=== PATIENT | female | born 1990 | race African-American/Black ===

== ENCOUNTER 2016-12-07 14:24 | Emergency (ER) ==
[2016-12-07 14:34] VITALS: BP 133/84; TEMP 97.9; BMI 25.0
--- NOTE | 2016-12-07 14:58 | ED.PDOC ---
General ED Provider: Dr. 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 breast pain admits discharge is intermittent and is unsure different from , is on injectable control Time Seen by Physician: 14:58 Mode of Arrival: Walk-In Information Source: Patient, Family Exam Limitations: No limitations Primary Care Provider: RAS BERNARDO Nursing and Triage Documentation Reviewed and Agree: No Review of Systems - Review Of Systems Constitutional: Reports: Malaise Eyes: Reports: No symptoms Ears, Nose, Mouth, Throat: Reports: No symptoms Respiratory: Reports: No symptoms Cardiac: Reports: No symptoms GI: Reports: No symptoms : Reports: No symptoms Musculoskeletal: Reports: No symptoms Skin: Reports: Other (breast pain and discharge intermittenly over months since stopped breast feeding) Neurological: Reports: No symptoms Endocrine: Reports: No symptoms Hematologic/Lymphatic: Reports: Other All Other Systems: Other Past Medical History - Past Medical History Previously Healthy: Yes Endocrine: Reports: None Cardiovascular: Reports: None Respiratory: Reports: None Hematological: Reports: None Gastrointestinal: Reports: None Genitourinary: Reports: None Neuro/Psych: Reports: None Musculoskeletal: Reports: None Cancer: Reports: None Last Menstrual Period: 11/03 - Surgical History General Surgical History: Reports: None - Family History Family History: Reports: Unknown - Social History Smoking Status: Never smoker Hx Substance Use: No Alcohol Screening: None - Immunizations Tetanus Shot up to Date: Yes Physical Exam - Physical Exam Appearance: Well-appearing, Thin Pain Distress: Mild Neck: Supple Respiratory: Airway patent, Breath sounds clear Cardiovascular: RRR Skin: Warm, Dry, Normal color (breasts not engorged left tender throughout more suplateral minimal clear fluid on expression right nontender exceptsuplateral) Critical Care Note - Critical Care Note Total Time (mins): 0 Course - Course Orders, Labs, Meds: Lab Review 12/07/16 16:05 Urine Test Negative Orders Category Date Time Status TEST URINE [URINE ] Stat LAB 12/07/16 16:05 Completed Vital Signs: Temp Pulse Resp BP Pulse Ox 12/07/16 14:26 97.9 F 88 20 133/84 98 Departure - Departure Time of Disposition: 16:29 Disposition: HOME SELF-CARE Discharge Problem: Mastitis of left breast unrelated to or Instructions: Mastitis (ED) Condition: Good Pt referred to PMD for follow-up: Yes Additional Instructions: follow up PMD discuss symptoms of breast pain consider prolactin HORMONE, LH HORMONE, obgyn consult as indicated Keflex antibiotic until gone Motrin for pain Prescriptions: Cephalexin [Keflex] 500 mg PO QID #40 capsule Ibuprofen [Motrin] 600 mg PO QID PRN #30 tablet PRN Reason: PAIN Home Medications: Ambulatory Orders Cephalexin [Keflex] 500 mg PO QID #40 capsule 12/07/16 Ibuprofen [Motrin] 600 mg PO QID PRN #30 tablet 12/07/16 Medroxyprogesterone Acetate [Depo-Provera] 150 mg IM 2-4XD 12/07/16
[2016-12-07 16:19] LABS: URINE PREGNANCY INTERNAL QC INTERNAL QC VALID
== END 2016-12-07 16:45 | disposition home or self-care (01) ==
LOC: ED 14:24
DX: N61.0 Mastitis without abscess (principal)
CPT/HCPCS: 36415; 81025; 99283

== ENCOUNTER 2017-04-06 09:47 | Emergency (ER) ==
[2017-04-06 09:54] VITALS: BP 164/96; TEMP 98.3; BMI 27.4
[2017-04-06] MEDS ORDERED: ZOFRAN 4 MG/2 ML IM STA (10:17)
[2017-04-06] MEDS ORDERED: MORPHINE 4 MG/ML SYRINGE IM STA (10:17)
[2017-04-06 10:44] LABS: BASOPHILS % (AUTO) 0.5 % (0.0-3.0); EOSINOPHILS % (AUTO) 0.3 % (0.0-7.0); HEMATOCRIT 37.3 % (37.0-47.0); HEMOGLOBIN 12.6 g/dl (12.0-16.0); IMMATURE GRANULOCYTE % (AUTO) 0.3 % (0.0-5.0); LYMPHOCYTES # (AUTO) 1.4 K/uL (0.60-3.4); MEAN CORPUSCULAR HGB CONC 33.8 (31.8-35.4); MEAN CORPUSCULAR VOLUME 85.7 fl (81.0-99.0); MONOCYTES # (AUTO) 0.1 K/uL (0.4-2.0); MONOCYTES % (AUTO) 1.8 (0-10); NEUTROPHILS # (AUTO) 4.9 K/ul (2.0-6.9); NEUTROPHILS % (AUTO) 75.1; PLATELET COUNT 315 10^3/uL (140-440); RED BLOOD COUNT 4.35 10^6/ul (4.20-5.40); WHITE BLOOD COUNT 6.55 K/ul (4.6-10.2)
[2017-04-06 10:50] LABS: BILIRUBIN,URINE Negative (NEGATIVE); KETONES,URINE Negative (NEGATIVE); LEUKOCYTE ESTERASE ,URINE Negative (NEGATIVE); NITRITE,URINE Positive (NEGATIVE); PH,URINE 7.5 (5-9); PROTEIN,URINE Negative (NEGATIVE); URINE, BLOOD Trace-intact (NEGATIVE)
[2017-04-06 10:52] LABS: ADD URINE MICROSCOPIC YES
[2017-04-06 10:53] LABS: BACTERIA,URINE 1+ (NOT PRESENT)
[2017-04-06 11:04] LABS: ALBUMIN 4.1 g/dL (3.4-5.0); ALBUMIN/GLOBULIN RATIO 1.11; ANION GAP 14.8; BILIRUBIN,TOTAL 0.46 mg/dL (0.00-1.20); BUN/CREATININE RATIO 12.19; CALCIUM 9.5 mg/dL (8.2-10.2); CREATININE 0.82 mg/dL (0.60-1.30); POTASSIUM 3.8 mmol/L (3.5-5.10); SERUM PREGNANCY INTERNAL QC INTERNAL QC VALID; TOTAL PROTEIN 7.8 g/dL (6.4-8.2)
--- NOTE | 2017-04-06 11:45 | CT ---
EXAM: CT of the abdomen pelvis without contrast History: Abdominal pain and vomiting, bilious vomiting. Comparison: CT abdomen pelvis 08/15/2016 Technique: Multiplanar CT images through the abdomen pelvis were obtained without the administratio n of IV contrast Findings: Motion artifact. The lack of contrast administration of limits evaluation. Lung bases ar e free of consolidation. No acute osseous abnormalities. No renal stones and no hydronephrosis. Gallbladder is not seen. No focal liver or splenic lesions. No frida peripancreatic inflammation. Adrenal glands are unremarkable. No dilated loops of bowel . Moderate bladder distension but no bladder wall thickening. No free air. Small amount of pelvic fluid. The appendix is not seen but there are no secondary signs of appendicitis. No bowel obstru ction. Impression: 1. No bowel obstruction. 2. Moderate bladder distension but no bladder wall thickening. 3. Small amount of pelvic fluid is probably physiologic.
--- NOTE | 2017-04-06 12:48 | US ---
EXAM: Ultrasound Transvaginal Non-obstetrical. HISTORY: Pelvic pain. Pelvic fluid on CT. COMPARISON: CT earlier the same day. TECHNIQUE: Fernandes scale and color doppler images with transvaginal probe. FINDINGS: The uterus measures 5.6 x 2.7 x 3.5 cm and appears normal. Endometrial stripe measures 0 .2 cm. No endometrial fluid collections are seen. Right ovary measures 4.2 x 2.3 x 2.3 cm. Left ovary measures 3.1 x 1.1 x 1.2 cm. Both ovaries appe ar unremarkable with vascular flow. Small amount of free pelvic fluid noted which is within physiol ogic range IMPRESSION: 1. Small amount of free pelvic fluid which is within physiologic range. 2. No sonographic abnormality of the uterus or ovaries.
--- NOTE | 2017-04-06 12:59 | ED.PDOC ---
General ED Provider: Dr. MYRIAM GOODWIN Chief Complaint: Nausea/Vomiting Stated Complaint: abdominal pain Time Seen by Physician: 10:00 (laceration l thumb) Mode of Arrival: Walk-In Information Source: Patient Exam Limitations: No limitations Primary Care Provider: RAS BERNARDO Nursing and Triage Documentation Reviewed and Agree: Yes GI Complaint Exam - Abdominal Pain Complaint/Exam Onset: Gradual Duration: 12 hrs Symptoms Are: Still present Timing: Constant Initial Severity: Moderate Current Severity: Mild Location of Pain: Diffuse Character: Reports: Aching, Cramping Aggravating: Reports: None Alleviating: Reports: None Associated Signs and Symptoms: Denies: Diaphoresis, Fever, Cough, Chest pain, Dizziness, Back pain, Constipation, Blood in stool, Dysuria, Urinary frequency, Decreased urine output, Decreased appetite, Vaginal bleeding, Vaginal discharge , Nausea, Vomiting, Diarrhea, Sore throat, Decreased activity AAA Risk Factors: Reports: None Cardiac Risk Factors: Reports: None Ectopic Risk Factors: Reports: None Ovarian Torsion Risk Factors: Reports: Reproductive age Surgical Obstruction Risk Factors: Reports: None Related Surgical History: Reports: None Patient Rh Status: Unknown Differential Diagnoses: Appendicitis, Bowel Obstruction, Constipation, Diverticulitis, Gastroenteritis Review of Systems - Review Of Systems Constitutional: Reports: No symptoms Eyes: Reports: No symptoms Ears, Nose, Mouth, Throat: Reports: No symptoms Respiratory: Reports: No symptoms Cardiac: Reports: No symptoms GI: Reports: Abdominal pain : Reports: No symptoms Musculoskeletal: Reports: No symptoms Skin: Reports: No symptoms Neurological: Reports: No symptoms Endocrine: Reports: No symptoms Hematologic/Lymphatic: Reports: No symptoms All Other Systems: Reviewed and Negative Past Medical History - Past Medical History Previously Healthy: Yes Endocrine: Reports: None Cardiovascular: Reports: None Respiratory: Reports: None Hematological: Reports: None Gastrointestinal: Reports: None Genitourinary: Reports: None Neuro/Psych: Reports: None Musculoskeletal: Reports: None Cancer: Reports: None Last Menstrual Period: TODAY - Surgical History General Surgical History: Reports: None - Family History Family History: Reports: Unknown - Social History Smoking Status: Never smoker Hx Substance Use: No Alcohol Screening: None - Immunizations Tetanus Shot up to Date: Yes Physical Exam - Physical Exam Appearance: Well-appearing, No pain distress, Well-nourished Eyes: RUBÉN, EOMI, Conjunctiva clear ENT: Ears normal, Nose normal, Oropharynx normal Respiratory: Airway patent, Breath sounds clear, Breath sounds equal, Respirations nonlabored Cardiovascular: RRR, Pulses normal, No rub, No murmur GI/: Soft, Nontender, No masses, Bowel sounds normal, No Organomegaly Musculoskeletal: Normal strength, ROM intact, No edema, No calf tenderness Skin: Warm, Dry, Normal color Neurological: Sensation intact, Motor intact, Reflexes intact, Cranial nerves intact, Alert, Oriented Psychiatric: Affect appropriate, Mood appropriate Interpretation - Radiology Interpretation Radiology Interpretation By: Radiologist Radiology Results: No acute changes Critical Care Note - Critical Care Note Total Time (mins): 0 Course - Course Hematology/Chemistry: 04/06/17 10:30 04/06/17 10:30 Orders, Labs, Meds: Lab Review 04/06/17 10:30 WBC 6.55 RBC 4.35 Hgb 12.6 Hct 37.3 MCV 85.7 MCH 29.0 MCHC 33.8 RDW Coeff of Rayshawn 14.4 Plt Count 315 Immature Gran % (Auto) 0.3 Neut % (Auto) 75.1 Lymph % (Auto) 22.0 [place] % (Auto) 1.8 Eos % (Auto) 0.3 Baso % (Auto) 0.5 Immature Gran # (Auto) 0.0 Neut # 4.9 Lymph # 1.4 [place] # 0.1 L Eos # 0.0 Baso # 0.0 Sodium 137 Potassium 3.8 Chloride 106 Carbon Dioxide 20 L Anion Gap 14.8 BUN 10 Creatinine 0.82 Estimated GFR (MDRD) 103.00 BUN/Creatinine Ratio 12.19 Glucose 112 H Lactic Acid 8.4 Calcium 9.5 Total Bilirubin 0.46 AST 15 ALT 10 L Alkaline Phosphatase 62 Total Protein 7.8 Albumin 4.1 Globulin 3.7 Albumin/Globulin Ratio 1.11 Amylase 81 Lipase 16 Serum , Qual Negative Urine Color Yellow Urine Clarity Slightly Urine pH 7.5 Ur Specific Ryan 1.020 Urine Protein Negative Urine Glucose (UA) Negative Urine Ketones Negative Urine Blood Trace-intact Urine Nitrite Positive Urine Bilirubin Negative Urine Urobilinogen 0.2 Ur Leukocyte Esterase Negative Urine Microscopic WBC 2-5 Ur Squamous Epith Cells 0-2 Amorphous Sediment 2+ Urine Bacteria 1+ Orders Category Date Time Status AMYLASE Stat LAB 04/06/17 10:30 Completed BLOOD CULTURE Stat LAB 04/06/17 10:30 Received CBC W/ AUTO DIFF Stat LAB 04/06/17 10:30 Completed COMPREHENSIVE METABOLIC PANEL Stat LAB 04/06/17 10:30 Completed LACTIC ACID Stat LAB 04/06/17 10:30 Completed LIPASE Stat LAB 04/06/17 10:30 Completed SERUM Stat LAB 04/06/17 10:30 Completed URINALYSIS C & S IF INDICATED Stat LAB 04/06/17 10:30 Completed URINE CULTURE Routine LAB 04/06/17 10:54 Received Morphine Sulfate [Morphine 4 mg/ml Syringe] MEDS 04/06/17 10:17 Discontinued 4 mg IM ONCE STA Ondansetron HCl/Pf [Zofran 4 mg/2 ml] MEDS 04/06/17 10:17 Discontinued 4 mg IM ONCE STA CT ABDOMEN/PELVIS WO CONTRAST Stat RADS 04/06/17 10:17 Completed ULTRASOUND PELVIS GAMBINO VAGINAL/NONOB [U/S PELVIS GAMBINO RADS 04/06/17 12:02 Completed VAGINAL/NON OB] Stat Medications Discontinued Medications Generic Name Dose Route Start Last Admin Trade Name Freq PRN Reason Stop Dose Admin Morphine Sulfate 4 mg 04/06/17 10:17 Morphine 4 Mg/Ml Syringe IM 04/06/17 10:18 ONCE STA Ondansetron HCl 4 mg 04/06/17 10:17 Zofran 4 Mg/2 Ml IM 04/06/17 10:18 ONCE STA Vital Signs: Temp Pulse Resp BP Pulse Ox 04/06/17 09:47 98.3 F 65 20 164/96 H 97 Departure - Departure Time of Disposition: 12:58 Disposition: HOME SELF-CARE Discharge Problem: Nausea, Vomiting Urinary tract infection Qualifiers: Urinary tract infection type: site unspecified Abdominal pain Qualifiers: Abdominal location: unspecified location Qualifier Code: (R10.9) Unspecified abdominal pain Instructions: Abdominal Pain (ED) Condition: Good Pt referred to PMD for follow-up: No Additional Instructions: Please call your Family Physician as soon as possible to schedule a follow-up appointment. Allergies/Adverse Reactions: Allergies No Known Allergies Allergy (Unverified 04/06/17 09:57) Home Medications: Ambulatory Orders Medroxyprogesterone Acetate [Depo-Provera] 150 mg IM 2-4XD 12/07/16 Sulfamethoxazole/Trimethoprim [Bactrim Ds Tablet] 1 each PO BID #10 tablet 04/06 Disposition Discussed With: Patient
== END 2017-04-06 13:17 | disposition home or self-care (01) ==
LOC: ED 09:47
DX: N39.0 Urinary tract infection, site not specified (principal); R11.2 Nausea with vomiting, unspecified; R10.9 Unspecified abdominal pain
CPT/HCPCS: 36415; 80053; 81001; 82150; 83605; 83690; 84703; 85025; 87040; 87086; 99283

== ENCOUNTER 2017-10-18 07:35 | Emergency (ER) ==
[2017-10-18 07:45] VITALS: BP 144/105; TEMP 98.4; BMI 28.5
[2017-10-18] MEDS ORDERED: SODIUM CHLORIDE 1,000 ML IV STA (07:58)
[2017-10-18] MEDS ORDERED: LOMOTIL PO STA (07:59)
[2017-10-18] MEDS ORDERED: ZOFRAN 4 MG/2 ML IVP STA (07:59)
[2017-10-18 08:13] LABS: BASOPHILS % (AUTO) 0.4 % (0.0-3.0); HEMATOCRIT 35.6 % (37.0-47.0); HEMOGLOBIN 12.2 g/dl (12.0-16.0); IMMATURE GRANULOCYTE % (AUTO) 0.4 % (0.0-5.0); LYMPHOCYTES % (AUTO) 13.4 (10.0-50.0); MEAN CORPUSCULAR HEMOGLOBIN 29.4 pg (27.0-31.0); MEAN CORPUSCULAR HGB CONC 34.3 (31.8-35.4); MEAN CORPUSCULAR VOLUME 85.8 fl (81.0-99.0); MONOCYTES # (AUTO) 0.1 K/uL (0.4-2.0); MONOCYTES % (AUTO) 1.3 (0-10); NEUTROPHILS # (AUTO) 6.1 K/ul (2.0-6.9); NEUTROPHILS % (AUTO) 84.5; PLATELET COUNT 309 10^3/uL (140-440); RED BLOOD COUNT 4.15 10^6/ul (4.20-5.40); WHITE BLOOD COUNT 7.19 K/ul (4.6-10.2)
[2017-10-18 08:34] LABS: ALBUMIN/GLOBULIN RATIO 0.93; ANION GAP 14.8; BILIRUBIN,TOTAL 0.3 mg/dL (0.00-1.20); BUN/CREATININE RATIO 12.04; CALCIUM 9.7 mg/dL (8.2-10.2); CREATININE 0.83 mg/dL (0.60-1.30); POTASSIUM 3.8 mmol/L (3.5-5.10); TOTAL PROTEIN 8.3 g/dL (6.4-8.2)
[2017-10-18 08:39] LABS: SERUM PREGNANCY INTERNAL QC INTERNAL QC VALID
[2017-10-18 08:46] LABS: FLU INTERNAL QC INTERNAL QC VALID; RAPID FLU A NEGATIVE (NEGATIVE); RAPID FLU B NEGATIVE (NEGATIVE)
--- NOTE | 2017-10-18 09:09 | DI ---
EXAM: PA and lateral views of the chest HISTORY: Cough. COMPARISON: Chest x-ray 04/28/2015 FINDINGS: The cardiomediastinal silhouette is normal. There is no pneumothorax or pleural effusion. There is no consolidation, nodule or mass. The osseous structures demonstrate degenerative disease of the spine. IMPRESSION: No acute cardiopulmonary process
--- NOTE | 2017-10-18 09:27 | CT ---
EXAM: CT Abdomen without contrast. CT Pelvis without contrast. HISTORY: Generalized mid abdominal pain, nausea and vomiting. COMPARISON: 04/06/2017. TECHNIQUE: Multiple axial images of the abdomen and pelvis were obtained without intravenous contras t. Images were reformatted in the coronal plane. FINDINGS: Please note that evaluation of the abdominal and pelvic structures is limited due to lack of intravenous contrast. Lung bases are clear. No acute osseous abnormality identified. Gallbladder not seen. The liver, pancreas, spleen, adrenal glands, and kidneys demonstrate normal co ntour. No calcified renal stones or hydronephrosis detected. The bowel is normal in course and caliber without evidence for obstruction or inflammatory process. The appendix is normal. Uterus demonstrates normal contour. Urinary bladder is unremarkable. No fr ee fluid or free air identified. IMPRESSION: No acute abnormality within the abdomen or pelvis.
[2017-10-18] MEDS ORDERED: SODIUM CHLORIDE 1,000 ML IV ONE (09:30)
--- NOTE | 2017-10-18 10:08 | ED.PDOC ---
General ED Provider: Dr. MYRIAM GOODWIN Chief Complaint: Nausea/Vomiting Stated Complaint: vomiting, diarrhea Time Seen by Physician: 08:00 Mode of Arrival: Walk-In Information Source: Patient Exam Limitations: No limitations Primary Care Provider: RAS BERNARDO Nursing and Triage Documentation Reviewed and Agree: Yes (seen with staff) GI Complaint Exam - Vomiting/Diarrhea Complaint/Exam Onset/Duration: 1 day Symptoms Are: Resolved Episodes of Vomiting over last 24 Hours: 5 Episodes of Diarrhea Over Last 24 Hours: 7 Initial Severity: Mild Current Severity: Mild Character of Vomiting: Reports: Non-bilious Character of Diarrhea: Reports: Watery. Denies: Bloody Aggravating: Reports: Food Alleviating: Reports: Clear liquids, NPO Associated Signs and Symptoms: Reports: Abdominal pain. Denies: Dizziness, Light-headedness, Melena, Hematemesis, Fever, Cramping Non-GI Risk Factors: Reports: None Surgical Obstruction Risk Factors: Reports: None Related Surgical History: Reports: None Abdominal Findings: Present: None Differential Diagnoses: Viral Gastroenteritis Review of Systems - Review Of Systems Constitutional: Reports: Chills, Malaise, Weakness, Loss of appetite Eyes: Reports: No symptoms Ears, Nose, Mouth, Throat: Reports: No symptoms Respiratory: Reports: No symptoms Cardiac: Reports: No symptoms GI: Reports: Abdominal pain, Diarrhea, Nausea : Reports: No symptoms Musculoskeletal: Reports: No symptoms Skin: Reports: No symptoms Neurological: Reports: No symptoms Endocrine: Reports: No symptoms Hematologic/Lymphatic: Reports: No symptoms All Other Systems: Reviewed and Negative Past Medical History - Past Medical History Previously Healthy: Yes Endocrine: Reports: None Cardiovascular: Reports: None Respiratory: Reports: None Hematological: Reports: None Gastrointestinal: Reports: None Genitourinary: Reports: None Neuro/Psych: Reports: None Musculoskeletal: Reports: None Cancer: Reports: None Last Menstrual Period: 10/15/17 - Surgical History General Surgical History: Reports: None - Family History Family History: Reports: Unknown - Social History Smoking Status: Never smoker Hx Substance Use: No Alcohol Screening: None Physical Exam - Physical Exam Appearance: Well-appearing, No pain distress, Well-nourished Eyes: RUBÉN, EOMI, Conjunctiva clear ENT: Ears normal, Nose normal, Oropharynx normal Respiratory: Airway patent, Breath sounds clear, Breath sounds equal, Respirations nonlabored Cardiovascular: RRR, Pulses normal, No rub, No murmur GI/: Soft, Nontender, No masses, Bowel sounds normal, No Organomegaly Musculoskeletal: Normal strength, ROM intact, No edema, No calf tenderness Skin: Warm, Dry, Normal color Neurological: Sensation intact, Motor intact, Reflexes intact, Cranial nerves intact, Alert, Oriented Psychiatric: Affect appropriate, Mood appropriate Interpretation - Radiology Interpretation Radiology Interpretation By: Radiologist Radiology Results: No acute changes Re-Evaluation - Re-Evaluation Time of Re-Evaluation: 09:00 Status: Improved Vital Signs Stable: Yes Pain Level: 0 Appearance: NAD Lungs: Clear Skin: Warm and Dry Neuro: Alert and Oriented X3 CV: RRR - Re-Evaluation Time of Re-Evaluation: 10:08 Status: Improved Vital Signs Stable: Yes Pain Level: 0 Appearance: NAD Skin: Warm and Dry Neuro: Alert and Oriented X3 CV: RRR Critical Care Note - Critical Care Note Total Time (mins): 0 Course - Course Hematology/Chemistry: 10/18/17 08:11 10/18/17 08:11 Orders, Labs, Meds: Lab Review 10/18/17 10/18/17 10/18/17 08:03 08:11 08:11 WBC 7.19 RBC 4.15 L Hgb 12.2 Hct 35.6 L MCV 85.8 MCH 29.4 MCHC 34.3 RDW Coeff of Rayshawn 14.4 Plt Count 309 Immature Gran % (Auto) 0.4 Neut % (Auto) 84.5 Lymph % (Auto) 13.4 [place] % (Auto) 1.3 Eos % (Auto) 0.0 Baso % (Auto) 0.4 Immature Gran # (Auto) 0.0 Neut # 6.1 Lymph # 1.0 [place] # 0.1 L Eos # 0.0 Baso # 0.0 Sodium 136 Potassium 3.8 Chloride 105 Carbon Dioxide 20 L Anion Gap 14.8 BUN 10 Creatinine 0.83 Estimated GFR (MDRD) 101.00 BUN/Creatinine Ratio 12.04 Glucose 120 H Calcium 9.7 Total Bilirubin 0.30 AST 15 ALT 15 Alkaline Phosphatase 76 Total Protein 8.3 H Albumin 4.0 Globulin 4.3 Albumin/Globulin Ratio 0.93 Serum , Qual Influenza A (Rapid) Negative Influenza B (Rapid) Negative 10/18/17 08:11 WBC RBC Hgb Hct MCV MCH MCHC RDW Coeff of Rayshawn Plt Count Immature Gran % (Auto) Neut % (Auto) Lymph % (Auto) [place] % (Auto) Eos % (Auto) Baso % (Auto) Immature Gran # (Auto) Neut # Lymph # [place] # Eos # Baso # Sodium Potassium Chloride Carbon Dioxide Anion Gap BUN Creatinine Estimated GFR (MDRD) BUN/Creatinine Ratio Glucose Calcium Total Bilirubin AST ALT Alkaline Phosphatase Total Protein Albumin Globulin Albumin/Globulin Ratio Serum , Qual Negative Influenza A (Rapid) Influenza B (Rapid) Orders Category Date Time Status ED IV/MEDIPORT/POWERPORT .ONCE EMERGENCY 10/18/17 07:58 Ordered CBC W/ AUTO DIFF Stat LAB 10/18/17 07:57 Ordered COMPREHENSIVE METABOLIC PANEL Stat LAB 10/18/17 07:57 Ordered MOLECULAR GROUP A STREP Stat LAB 10/18/17 08:03 Results RAPID FLU A/B Stat LAB 10/18/17 07:58 Uncollected SERUM Stat LAB 10/18/17 Ordered STREP SCREEN Stat LAB 10/18/17 07:58 Uncollected URINALYSIS C & S IF INDICATED Stat LAB 10/18/17 07:57 Uncollected 0.9 % Sodium Chloride [Saline Flush] MEDS 10/18/17 07:58 Ordered 1 syr IVF PRN PRN Diphenoxylate HCl/Atropine [Lomotil] MEDS 10/18/17 07:59 Stat 2 tab PO ONCE STA Ondansetron HCl/Pf [Zofran 4 mg/2 ml] MEDS 10/18/17 07:59 Stat 4 mg IVP ONCE STA SODIUM CHLORIDE 0.9% @ 1,000 MLS/HR(1,000ml) MEDS 10/18/17 07:58 Ordered Sodium Chloride 0.9% [Sodium Chloride] 1,000 ml IV BOLUS CHEST, 2 VIEWS PA & LAT Stat RADS 10/18/17 07:[address] ABDOMEN/PELVIS WO CONTRAST Stat RADS 10/18/17 08:17 Ordered Medications Generic Name Dose Route Start Last Admin Trade Name Freq PRN Reason Stop Dose Admin Sodium Chloride 1 syr 10/18/17 07:58 10/18/17 08:26 Saline Flush IVF 1 syr PRN PRN Administration To flush IV Discontinued Medications Generic Name Dose Route Start Last Admin Trade Name Freq PRN Reason Stop Dose Admin Diphenoxylate HCl/Atropine 2 tab 10/18/17 07:59 10/18/17 09:19 Lomotil PO 10/18/17 08:00 2 tab ONCE STA Administration Sodium Chloride 1,000 mls @ 1,000 mls/hr 10/18/17 07:58 10/18/17 08:20 Sodium Chloride IV 10/18/17 08:57 1,000 mls/hr BOLUS STA Administration Ondansetron HCl 4 mg 10/18/17 07:59 10/18/17 08:20 Zofran 4 Mg/2 Ml IVP 10/18/17 08:00 4 mg ONCE STA Administration Vital Signs: Temp Pulse Resp BP Pulse Ox 10/18/17 07:42 98.4 F 63 20 144/105 H 99 Departure - Departure Time of Disposition: 11:00 Disposition: HOME SELF-CARE Discharge Problem: Nausea, Vomiting, Viral syndrome Instructions: Viral Syndrome (ED) Condition: Good Pt referred to PMD for follow-up: Yes Additional Instructions: Please call your Family Physician as soon as possible to schedule a follow-up appointment. Allergies/Adverse Reactions: Allergies No Known Allergies Allergy (Verified 10/18/17 07:47)
== END 2017-10-18 11:02 | disposition home or self-care (01) ==
LOC: ED 07:35
DX: B34.9 Viral infection, unspecified (principal)
CPT/HCPCS: 36415; 80053; 84703; 85025; 87651; 87804; 87880; 96361; 96374; 99283

== ENCOUNTER 2018-03-21 14:56 | Emergency (ER) ==
[2018-03-21 15:03] VITALS: BP 124/79; TEMP 99.7; BMI 28.2
[2018-03-21] MEDS ORDERED: DECADRON 4 MG/ML SDV IV STA (15:19)
--- NOTE | 2018-03-21 16:13 | CT ---
EXAM: CT Abdomen without contrast. CT Pelvis without contrast. HISTORY: Mid abdominal pain. Nausea. COMPARISON: 10/18/2017. TECHNIQUE: Multiple axial images of the abdomen and pelvis were obtained without intravenous contras t. Images were reformatted in the sagittal and coronal plane. FINDINGS: Please note that evaluation of the abdominal and pelvic structures is limited due to lack of intravenous contrast. The lung bases are clear. No acute osseous abnormality is detected. Gallbladder not seen. The liver, pancreas, spleen, adrenal glands, and kidneys demonstrate normal co ntour. No calcified renal stones or hydronephrosis identified. No ureteral or bladder calculi are s een. There is diastasis of the rectus abdominus muscles above the level of the umbilicus with protrusion o f some bowel loops through this area. There is no evidence for bowel obstruction or acute inflammati on. The appendix is normal. Urinary bladder is distended but without localized abnormality. Uterus demonstrates normal contour. No free fluid or free air is seen. IMPRESSION: 1. No acute inflammatory process in the abdomen or pelvis. 2. Nonspecific urinary bladder distension. 3. Diastasis of the rectus abdominus muscles with herniation of bowel through this area. No associa jefferson inflammation.
--- NOTE | 2018-03-21 16:46 | ED.PDOC ---
General ED Provider: Dr. MYRIAM GOODWIN Chief Complaint: Abdominal Pain Stated Complaint: vomiting Time Seen by Physician: 15:00 Mode of Arrival: Walk-In Information Source: Patient Exam Limitations: No limitations Primary Care Provider: RAS BERNARDO Nursing and Triage Documentation Reviewed and Agree: Yes Reviewed sepsis parameters & appropriate labs ordered?: Yes System Inflammatory Response Syndrome: Not Applicable Sepsis Protocol: For patient's 13 years and over: Temp is 96.8 and below OR 101 and greater Pulse >90 BPM Resp >20/minute Acutely Altered Mental Status Are patient's symptoms suggestive of a new infection, such as: -Pneumonia -Skin, Soft Tissue -Endocarditis -UTI -Bone, Joint Infection -Implantable Device -Acute Abdominal Infection -Wound Infection -Meningitis -Blood Stream Catheter Infection -Unknown System Inflammatory Response Syndrome: Not Applicable (pt reported small amount of blood when she vomited this morning) GI Complaint Exam - Vomiting/Diarrhea Complaint/Exam Onset/Duration: this morning Symptoms Are: Resolved Episodes of Vomiting over last 24 Hours: 1 Initial Severity: Mild Current Severity: None Character of Vomiting: Reports: Bloody (small amount , less than 1 tea spoon no frida bleeing noted ) Aggravating: Reports: None Alleviating: Reports: None Associated Signs and Symptoms: Denies: Dizziness, Light-headedness, Melena, Hematemesis, Fever, Abdominal pain, Cramping Related History: Reports: Similar episode Review of Systems - Review Of Systems Constitutional: Reports: No symptoms Eyes: Reports: No symptoms Ears, Nose, Mouth, Throat: Reports: No symptoms Respiratory: Reports: No symptoms Cardiac: Reports: No symptoms GI: Reports: Vomiting : Reports: No symptoms Musculoskeletal: Reports: No symptoms Skin: Reports: No symptoms Neurological: Reports: No symptoms Endocrine: Reports: No symptoms Hematologic/Lymphatic: Reports: No symptoms All Other Systems: Reviewed and Negative Past Medical History - Past Medical History Previously Healthy: Yes Endocrine: Reports: None Cardiovascular: Reports: None Respiratory: Reports: None Hematological: Reports: None Gastrointestinal: Reports: None Genitourinary: Reports: None Neuro/Psych: Reports: None Musculoskeletal: Reports: None Cancer: Reports: None Last Menstrual Period: january 2018--stopped depo - Surgical History General Surgical History: Reports: None - Family History Family History: Reports: Unknown - Social History Smoking Status: Never smoker Hx Substance Use: No Alcohol Screening: None Physical Exam - Physical Exam Appearance: Well-appearing, No pain distress, Well-nourished Eyes: RUBÉN, EOMI, Conjunctiva clear ENT: Ears normal, Nose normal, Oropharynx normal Respiratory: Airway patent, Breath sounds clear, Breath sounds equal, Respirations nonlabored Cardiovascular: RRR, Pulses normal, No rub, No murmur GI/: Soft, Nontender, No masses, Bowel sounds normal, No Organomegaly Musculoskeletal: Normal strength, ROM intact, No edema, No calf tenderness Skin: Warm, Dry, Normal color Neurological: Sensation intact, Motor intact, Reflexes intact, Cranial nerves intact, Alert, Oriented Psychiatric: Affect appropriate, Mood appropriate Interpretation - Radiology Interpretation Radiology Interpretation By: Radiologist Radiology Results: Positive (small amount of bowel herniation) Critical Care Note - Critical Care Note Total Time (mins): 0 Course - Course Hematology/Chemistry: 03/21/18 15:19 03/21/18 15:20 Orders, Labs, Meds: Lab Review 03/21/18 03/21/18 03/21/18 15:19 15:20 15:20 WBC 8.85 RBC 4.13 L Hgb 12.0 Hct 36.4 L MCV 88.1 MCH 29.1 MCHC 33.0 RDW Coeff of Rays[place]wn 14.6 Plt Count 328 Immature Gran % (Auto) 0.2 Neut % (Auto) 55.9 Lymph % (Auto) 33.1 [place] % (Auto) 6.6 Eos % (Auto) 3.5 Baso % (Auto) 0.7 Immature Gran # (Auto) 0.0 Neut # (Auto) 5.0 Lymph # (Auto) 2.9 [place] # (Auto) 0.6 Eos # (Auto) 0.3 Baso # (Auto) 0.1 PT INR APTT Sodium 139 Potassium 4.3 Chloride 105 Carbon Dioxide 23 Anion Gap 15.3 BUN 12 Creatinine 0.86 Estimated GFR (MDRD) 97.00 BUN/Creatinine Ratio 13.95 Glucose 84 Calcium 9.8 Total Bilirubin 0.5 AST 15 ALT 10 L Alkaline Phosphatase 71 Total Protein 8.2 Albumin 4.1 Globulin 4.1 Albumin/Globulin Ratio 1.00 Amylase 56 Lipase 18 Serum , Qual Negative Urine Color Urine Clarity Urine pH Ur Specific [place] Urine Protein Urine Glucose (UA) Urine Ketones Urine Blood Urine Nitrite Urine Bilirubin Urine Urobilinogen Ur Leukocyte Esterase Urine Microscopic RBC Ur Squamous Epith Cells Urine Bacteria 03/21/18 03/21/18 15:20 15:20 WBC RBC Hgb Hct MCV MCH MCHC RDW Coeff of [place] Plt Count Immature Gran % (Auto) Neut % (Auto) Lymph % (Auto) [place] % (Auto) Eos % (Auto) Baso % (Auto) Immature Gran # (Auto) Neut # (Auto) Lymph # (Auto) [place] # (Auto) Eos # (Auto) Baso # (Auto) PT 10.8 INR 1.08 APTT 26.9 Sodium Potassium Chloride Carbon Dioxide Anion Gap BUN Creatinine Estimated GFR (MDRD) BUN/Creatinine Ratio Glucose Calcium Total Bilirubin AST ALT Alkaline Phosphatase Total Protein Albumin Globulin Albumin/Globulin Ratio Amylase Lipase Serum , Qual Urine Color Yellow Urine Clarity Clear Urine pH 6.0 Ur Specific [place] 1.015 Urine Protein Negative Urine Glucose (UA) Negative Urine Ketones Negative Urine Blood Trace-intact Urine Nitrite Positive Urine Bilirubin Negative Urine Urobilinogen 0.2 Ur Leukocyte Esterase Negative Urine Microscopic RBC 0-2 Ur Squamous Epith Cells Not present Urine Bacteria 4+ Orders Category Date Time Status AMYLASE Stat LAB 03/21/18 15:20 Completed CBC W/ AUTO DIFF Stat LAB 03/21/18 15:19 Completed COMPREHENSIVE METABOLIC PANEL Stat LAB 03/21/18 15:20 Completed LIPASE Stat LAB 03/21/18 15:20 Completed PARTIAL THROMBOPLASTIN TIME Stat LAB 03/21/18 15:20 Completed PT WITH INR Stat LAB 03/21/18 15:20 Completed SERUM Stat LAB 03/21/18 15:20 Completed URINALYSIS C & S IF INDICATED Stat LAB 03/21/18 15:20 Completed URINE CULTURE Routine LAB 03/21/18 15:[address] ABDOMEN/PELVIS WO CONTRAST Stat RADS 03/21/18 15:16 Completed Vital Signs: Temp Pulse Resp BP Pulse Ox 03/21/18 14:56 99.7 F H 70 16 124/79 97 Departure - Departure Time of Disposition: 16:49 Disposition: HOME SELF-CARE Discharge Problem: Upper GI bleed, Intestinal hernia UTI (urinary tract infection) Qualifiers: Urinary tract infection type: site unspecified Instructions: Umbilical Hernia (ED), Gastrointestinal Bleeding (ED), Urinary Tract Infection in Women (ED) Condition: Good Pt referred to PMD for follow-up: Yes IPMP verified?: No Allergies/Adverse Reactions: Allergies No Known Allergies Allergy (Verified 03/21/18 15:05) Home Medications: Ambulatory Orders 1 [No Reported Medications] 03/21/18
== END 2018-03-21 16:58 | disposition home or self-care (01) ==
LOC: ED 14:56
DX: N39.0 Urinary tract infection, site not specified (principal); K92.0 Hematemesis; K46.9 Unspecified abdominal hernia without obstruction or gangrene
CPT/HCPCS: 36415; 80053; 81001; 82150; 83690; 84703; 85025; 85610; 85730; 87086; 87186; 99283

== ENCOUNTER 2018-05-12 15:18 | Emergency (ER) ==
[2018-05-12 15:23] VITALS: BP 135/81; TEMP 98.9; BMI 27.3
[2018-05-12] MEDS ORDERED: SODIUM CHLORIDE 1,000 ML IV STA (15:59)
[2018-05-12] MEDS ORDERED: TORADOL IVP STA (16:01)
--- NOTE | 2018-05-12 16:04 | ED.PDOC ---
General ED Provider: Dr. PEGGY CARROLL Chief Complaint: Abdominal Pain Stated Complaint: Diagnosed with Umbilical hernia last month. Now has been having increased pain on the periumbilical area. Rates the pain at 8/10 with radiation to the flank areas bilaterally. Time Seen by Physician: 16:02 Mode of Arrival: Walk-In Information Source: Patient Primary Care Provider: ROBY ALARCON Nursing and Triage Documentation Reviewed and Agree: Yes Does patient meet sepsis criteria?: No If yes, has appropriate treatment been initiated?: No System Inflammatory Response Syndrome: Not Applicable Sepsis Protocol: For patient's 13 years and over: Temp is 96.8 and below OR 101 and greater Pulse >90 BPM Resp >20/minute Acutely Altered Mental Status Are patient's symptoms suggestive of a new infection, such as: -Pneumonia -Skin, Soft Tissue -Endocarditis -UTI -Bone, Joint Infection -Implantable Device -Acute Abdominal Infection -Wound Infection -Meningitis -Blood Stream Catheter Infection -Unknown GI Complaint Exam - Abdominal Pain Complaint/Exam Onset: Gradual Duration: 1 month Symptoms Are: Still present Timing: Constant Initial Severity: Moderate Current Severity: Severe Location of Pain: Diffuse Character: Reports: Dull Aggravating: Reports: None Alleviating: Reports: None Associated Signs and Symptoms: Denies: Diaphoresis, Fever, Cough, Chest pain, Dizziness, Back pain, Constipation, Blood in stool, Dysuria, Urinary frequency, Decreased urine output, Decreased appetite, Vaginal bleeding, Vaginal discharge , Nausea, Vomiting, Diarrhea, Sore throat, Decreased activity Related History: Reports: Similar episode Abdominal Findings: Present: None Review of Systems - Review Of Systems Constitutional: Reports: Loss of appetite GI: Reports: Abdominal pain All Other Systems: Reviewed and Negative Past Medical History - Past Medical History Previously Healthy: Yes Endocrine: Reports: None Cardiovascular: Reports: None Respiratory: Reports: None Hematological: Reports: None Gastrointestinal: Reports: None Genitourinary: Reports: None Neuro/Psych: Reports: None Musculoskeletal: Reports: None Cancer: Reports: None Last Menstrual Period: 01/2018 states she is on depo - Surgical History General Surgical History: Reports: None - Family History Family History: Reports: Unknown - Social History Smoking Status: Never smoker Hx Substance Use: No Alcohol Screening: None Physical Exam - Physical Exam Appearance: Ill-appearing Ill-appearing: Moderate Pain Distress: Moderate Respiratory: Airway patent Cardiovascular: RRR, Pulses normal, No rub, No murmur GI/: Soft, Tender Musculoskeletal: Normal strength, ROM intact, No edema, No calf tenderness Skin: Warm Neurological: Sensation intact, Motor intact, Alert, Oriented Psychiatric: Anxious Interpretation - Radiology Interpretation Radiology Interpretation By: Radiologist Radiology Results: No acute changes Exam Interpreted: CT Scan Critical Care Note - Critical Care Note Total Time (mins): 0 Course - Course Hematology/Chemistry: 05/12/18 16:28 05/12/18 16:28 Orders, Labs, Meds: Lab Review 05/12/18 05/12/18 05/12/18 15:30 16:28 16:28 WBC 7.48 RBC 4.56 Hgb 12.9 Hct 39.9 MCV 87.5 MCH 28.3 MCHC 32.3 RDW Coeff of Rayshawn 14.5 Plt Count 364 Immature Gran % (Auto) 0.1 Neut % (Auto) 58.2 Lymph % (Auto) 32.5 [place] % (Auto) 5.7 Eos % (Auto) 2.7 Baso % (Auto) 0.8 Immature Gran # (Auto) 0.0 Neut # (Auto) 4.4 Lymph # (Auto) 2.4 [place] # (Auto) 0.4 Eos # (Auto) 0.2 Baso # (Auto) 0.1 Sodium 137 Potassium 4.4 Chloride 104 Carbon Dioxide 21 Anion Gap 16.4 BUN 16 Creatinine 0.98 Estimated GFR (MDRD) 83.00 BUN/Creatinine Ratio 16.32 Glucose 76 Calcium 9.8 Total Bilirubin 0.4 AST 18 ALT 16 Alkaline Phosphatase 86 Total Protein 8.6 H Albumin 4.2 Globulin 4.4 Albumin/Globulin Ratio 0.95 Amylase 69 Lipase 18 Urine Color Yellow Urine Clarity Slightly Urine pH 5.5 Ur Specific [place] 1.020 Urine Protein Negative Urine Glucose (UA) Negative Urine Ketones 1+ Urine Blood Negative Urine Nitrite Negative Urine Bilirubin Negative Urine Urobilinogen 0.2 Ur Leukocyte Esterase Negative Ur Squamous Epith Cells Not present Amorphous Sediment 1+ Urine Bacteria 3+ Orders Category Date Time Status ED IV/MEDIPORT/POWERPORT .ONCE EMERGENCY 05/12/18 15:59 Active AMYLASE Stat LAB 05/12/18 16:28 Completed CBC W/ AUTO DIFF Stat LAB 05/12/18 16:28 Completed COMPREHENSIVE METABOLIC PANEL Stat LAB 05/12/18 16:28 Completed LIPASE Stat LAB 05/12/18 16:28 Completed URINALYSIS C & S IF INDICATED Stat LAB 05/12/18 15:30 Completed URINE CULTURE Stat LAB 05/12/18 15:30 Results 0.9 % Sodium Chloride [Saline Flush] MEDS 05/12/18 15:59 Discontinued 1 syr IVF PRN PRN Dicyclomine Inj [Bentyl] MEDS 05/12/18 17:39 Discontinued 20 mg IM ONCE STA Ketorolac Tromethamine [Toradol] MEDS 05/12/18 16:01 Discontinued 30 mg IVP ONCE STA Nitrofurantoin Monohyd/M-Cryst [Macrobid] MEDS 05/12/18 17:45 Discontinued 100 mg PO ONCE STA Sodium Chloride 0.9% [Sodium Chloride] 1,000 ml MEDS 05/12/18 15:[address] ABD/PEL WO RENAL STONE PROT Stat RADS 05/12/18 15:59 Completed Medications Discontinued Medications Generic Name Dose Route Start Last Admin Trade Name Freq PRN Reason Stop Dose Admin Dicyclomine HCl 20 mg 05/12/18 17:39 05/12/18 17:47 Bentyl IM 05/12/18 17:40 20 mg ONCE STA Administration Sodium Chloride 1,000 mls @ 1,000 mls/hr 05/12/18 15:59 05/12/18 17:00 Sodium Chloride IV 05/12/18 16:58 1,000 mls/hr BOLUS STA Administration Ketorolac Tromethamine 30 mg 05/12/18 16:01 05/12/18 17:04 Toradol IVP 05/12/18 16:02 30 mg ONCE STA Administration Nitrofurantoin Macrocrystals 100 mg 05/12/18 17:45 05/12/18 17:53 Macrobid PO 05/12/18 17:46 100 mg ONCE STA Administration Sodium Chloride 1 syr 05/12/18 15:59 05/12/18 17:06 Saline Flush IVF 1 syr PRN PRN Administration To flush IV Vital Signs: Temp Pulse Resp BP Pulse Ox 05/12/18 15:18 98.9 F 78 16 135/81 97 Departure - Departure Time of Disposition: 18:10 Disposition: HOME SELF-CARE Discharge Problem: Abdominal pain, Urinary tract bacterial infections Instructions: Urinary Tract Infection in Women (ED), Chronic Abdominal Pain (ED ) Condition: Stable Pt referred to PMD for follow-up: Yes IPMP verified?: No Additional Instructions: Take Medications as prescribed Follow up with the clinic in 3 days Prescriptions: Dicyclomine HCl [Bentyl] 10 mg PO TID PRN #20 capsule PRN Reason: Abdominal Pain Tramadol HCl [Ultram] 50 mg PO Q6H PRN #10 tablet PRN Reason: Severe Pain Allergies/Adverse Reactions: Allergies No Known Allergies Allergy (Verified 05/12/18 15:21) Home Medications: Ambulatory Orders Dicyclomine HCl [Bentyl] 10 mg PO TID PRN #20 capsule 05/12/18 Tramadol HCl [Ultram] 50 mg PO Q6H PRN #10 tablet 05/12/18 Disposition Discussed With: Patient, Family
--- NOTE | 2018-05-12 16:37 | CT ---
EXAM: CT scan of the abdomen and pelvis without contrast HISTORY: ATT TECHNIQUE: Helical imaging of the abdomen pelvis was performed without contrast. 3 mm thin axial im ages and coronal and sagittal reconstructions were provided for interpretation. Comparison 03/21/2018 CT scan of the abdomen and pelvis. FINDINGS: The liver, spleen, pancreas, adrenal glands and kidneys appear normal. The proximal urete rs are normal size. The small and large bowel loops are normal caliber. There is no free air. No r etroperitoneal abnormalities are seen. The helical images obtained through the pelvis demonstrate a normal appearance of the rectum, urinary bladder. There is no free fluid seen within the pelvis. The appendix was not seen. No definite in flammatory changes are seen in the right lower quadrant of the abdomen. Lung bases are clear. No ly tic or blastic lesions are seen within the osseous structures. IMPRESSION: There is no bowel obstruction or acute inflammatory change seen within the abdomen and p jenny. There is no ureteral obstruction. Overall limited evaluation without contrast. If the patients symptoms persist, repeat CT scan of the abdomen and pelvis can be performed with IV and oral contrast.
[2018-05-12] MEDS ORDERED: BENTYL IM STA (17:39)
[2018-05-12] MEDS ORDERED: MACROBID PO STA (17:45)
== END 2018-05-12 18:28 | disposition home or self-care (01) ==
LOC: ED 15:18
DX: N39.0 Urinary tract infection, site not specified (principal); R10.9 Unspecified abdominal pain
CPT/HCPCS: 36415; 74176; 80053; 81001; 82150; 83690; 85025; 87086; 87186; 96361; 96372; 96374; 99283

== ENCOUNTER 2018-12-23 13:04 | Emergency (ER) ==
[2018-12-23 13:11] VITALS: BP 128/77; TEMP 99.5; BMI 31.5
--- NOTE | 2018-12-23 13:44 | ED.PDOC ---
General ED Provider: Dr. DAVID DUFFY-ER Chief Complaint: Respiratory Complaint Stated Complaint: my ear and throat hurt and i am congested Time Seen by Physician: 13:05 Mode of Arrival: Walk-In Information Source: Patient Exam Limitations: No limitations Primary Care Provider: ROBY ALARCON Nursing and Triage Documentation Reviewed and Agree: Yes Does patient meet sepsis criteria?: No System Inflammatory Response Syndrome: Not Applicable Sepsis Protocol: For patient's 13 years and over: Temp is 96.8 and below OR 101 and greater Pulse >90 BPM Resp >20/minute Acutely Altered Mental Status Are patient's symptoms suggestive of a new infection, such as: -Pneumonia -Skin, Soft Tissue -Endocarditis -UTI -Bone, Joint Infection -Implantable Device -Acute Abdominal Infection -Wound Infection -Meningitis -Blood Stream Catheter Infection -Unknown EENT Complaint Exam - Ear Complaint/Exam Onset/Duration: 24 hrs Symptoms Are: Still present Initial Severity: Mild Current Severity: Moderate Character: Reports: Dull pain Associated Signs and Symptoms: Reports: Fever, Sore throat, URI symptoms Related History: Reports: Similar Episode Ear Surgical History: None Vesicles to External Pinna: No Vesicles to Tragus: No Tympanic Membrane: Erythema Differential Diagnoses: Otitis Media, URI Review of Systems - Review Of Systems Constitutional: Reports: No symptoms Eyes: Reports: No symptoms Ears, Nose, Mouth, Throat: Reports: Ear pain, Throat pain Respiratory: Reports: Cough Cardiac: Reports: No symptoms GI: Reports: No symptoms : Reports: No symptoms Musculoskeletal: Reports: No symptoms Skin: Reports: No symptoms Neurological: Reports: No symptoms Endocrine: Reports: No symptoms Hematologic/Lymphatic: Reports: No symptoms All Other Systems: Reviewed and Negative Past Medical History - Past Medical History Previously Healthy: Yes Endocrine: Reports: None Cardiovascular: Reports: None Respiratory: Reports: None Hematological: Reports: None Gastrointestinal: Reports: None Genitourinary: Reports: None Neuro/Psych: Reports: None Musculoskeletal: Reports: None Cancer: Reports: None Last Menstrual Period: nov 20 - Surgical History General Surgical History: Reports: None - Family History Family History: Reports: Unknown - Social History Smoking Status: Never smoker Hx Substance Use: No Alcohol Screening: None Physical Exam - Physical Exam Appearance: Well-appearing, No pain distress, Well-nourished Pain Distress: Mild Eyes: RUBÉN, EOMI, Conjunctiva clear ENT: Rhinorrhea Neck: Supple Respiratory: Airway patent, Breath sounds clear, Breath sounds equal, Respirations nonlabored Cardiovascular: RRR GI/: Soft, Nontender, No masses, Bowel sounds normal, No Organomegaly Musculoskeletal: Normal strength, ROM intact, No edema, No calf tenderness Skin: Warm, Dry, Normal color Neurological: Sensation intact, Motor intact, Reflexes intact, Cranial nerves intact, Alert, Oriented Psychiatric: Affect appropriate, Mood appropriate Critical Care Note - Critical Care Note Total Time (mins): 0 Course - Course Orders, Labs, Meds: Lab Review 12/23/18 13:16 Influ A Molecular Assay Negative by naat Influ B Molecular Assay Negative by naat Orders Category Date Time Status FLU A/B MOLECULAR Stat LAB 12/23/18 13:16 Completed MOLECULAR GROUP A STREP Stat LAB 12/23/18 13:16 Completed Vital Signs: Temp Pulse Resp BP Pulse Ox 12/23/18 13:04 99.5 F 90 20 128/77 97 Departure - Departure Time of Disposition: 13:43 Disposition: HOME SELF-CARE Discharge Problem: Otitis media Qualifiers: Otitis media type: suppurative Chronicity: acute Laterality: bilateral Recurrence: not specified as recurrent Spontaneous tympanic membrane rupture: without spontaneous rupture Qualified Code(s): H66.003 - Acute suppurative otitis media without spontaneous rupture of ear drum, bilateral Instructions: Ear Infection (ED) Condition: Good Pt referred to PMD for follow-up: Yes IPMP verified?: No Additional Instructions: amoxil 500mg tid x10 days--redheck in 72 hrs if not ijmproved Allergies/Adverse Reactions: Allergies No Known Allergies Allergy (Verified 12/23/18 13:10) Home Medications: Ambulatory Orders 1 [No Reported Medications] 12/23/18 Disposition Discussed With: Patient
== END 2018-12-23 13:49 | disposition home or self-care (01) ==
LOC: ED 13:04
DX: H66.003 Acute suppurative otitis media without spontaneous rupture of ear drum, bilateral (principal); J02.9 Acute pharyngitis, unspecified
CPT/HCPCS: 87502; 87651; 99282

== ENCOUNTER 2018-12-28 11:28 | Emergency (ER) ==
[2018-12-28 11:28] VITALS: BMI 31.5
[2018-12-28 11:32] VITALS: BP 139/86; TEMP 98.9
--- NOTE | 2018-12-28 12:21 | DI ---
EXAM: RIGHT FOOT, 3 VIEWS HISTORY: Great toe injury, pain FINDINGS: Bone and joint structures appear normal. No displaced fracture or joint dislocation is s een. There is no joint effusion. Soft tissues within normal limits. IMPRESSION: Within normal limits.
--- NOTE | 2018-12-28 12:23 | ED.PDOC ---
General ED Provider: Dr. MYRIAM GOODWIN Chief Complaint: Toe Pain/Injury Stated Complaint: right foot pain after a blunt force trauma Time Seen by Physician: 11:33 (seen with nursing staff satnam at all times ) Mode of Arrival: Walk-In Information Source: Patient Exam Limitations: No limitations Primary Care Provider: RAS BERNARDO Nursing and Triage Documentation Reviewed and Agree: Yes Does patient meet sepsis criteria?: No System Inflammatory Response Syndrome: Not Applicable Sepsis Protocol: For patient's 13 years and over: Temp is 96.8 and below OR 101 and greater Pulse >90 BPM Resp >20/minute Acutely Altered Mental Status Are patient's symptoms suggestive of a new infection, such as: -Pneumonia -Skin, Soft Tissue -Endocarditis -UTI -Bone, Joint Infection -Implantable Device -Acute Abdominal Infection -Wound Infection -Meningitis -Blood Stream Catheter Infection -Unknown Musculoskeletal Complaint Exam - Ankle/Foot Complaint/Exam Location of Injury: Reports: Right, Foot Mechanism of Injury: Reports: Trauma Symptoms Are: Reports: Still present Onset of Pain: Reports: Immediate Initial Severity: Moderate Current Severity: Mild Location: Reports: Discrete (big toe ) Character: Reports: Aching Alleviating: Reports: Rest, Position Aggravating: Reports: Movement Able to Bear Weight: Yes Associated Signs and Symptoms: Denies: Swelling, Redness, Bruising, Fever, Weakness, Numbness, Tingling Gout Risk Factors: Reports: None Related Surgical History: Reports: None Lower Extremity Findings: Absent: Swelling, Ecchymosis, Abnormal contour Tenderness: Present: Digits Review of Systems - Review Of Systems Constitutional: Reports: No symptoms Eyes: Reports: No symptoms Ears, Nose, Mouth, Throat: Reports: No symptoms Respiratory: Reports: No symptoms Cardiac: Reports: No symptoms GI: Reports: No symptoms : Reports: No symptoms Musculoskeletal: Reports: Joint pain (big toe) Skin: Reports: No symptoms Neurological: Reports: No symptoms Endocrine: Reports: No symptoms Hematologic/Lymphatic: Reports: No symptoms All Other Systems: Reviewed and Negative Past Medical History - Past Medical History Previously Healthy: Yes Endocrine: Reports: None Cardiovascular: Reports: None Respiratory: Reports: None Hematological: Reports: None Gastrointestinal: Reports: None Genitourinary: Reports: None Neuro/Psych: Reports: None Musculoskeletal: Reports: None Cancer: Reports: None Last Menstrual Period: yesterday - Surgical History General Surgical History: Reports: None - Family History Family History: Reports: Unknown - Social History Smoking Status: Never smoker Hx Substance Use: No Alcohol Screening: None Physical Exam - Physical Exam Appearance: Well-appearing, No pain distress, Well-nourished Eyes: RUBÉN, EOMI, Conjunctiva clear ENT: Ears normal, Nose normal, Oropharynx normal Respiratory: Airway patent, Breath sounds clear, Breath sounds equal, Respirations nonlabored Cardiovascular: RRR, Pulses normal, No rub, No murmur GI/: Soft, Nontender, No masses, Bowel sounds normal, No Organomegaly Musculoskeletal: Normal strength, ROM intact, No edema, No calf tenderness Skin: Warm, Dry, Normal color Neurological: Sensation intact, Motor intact, Reflexes intact, Cranial nerves intact, Alert, Oriented Psychiatric: Affect appropriate, Mood appropriate Critical Care Note - Critical Care Note Total Time (mins): 0 Course - Course Orders, Labs, Meds: Orders Category Date Time Status FOOT, RIGHT 3 VIEWS Stat RADS 12/28/18 11:51 Ordered Vital Signs: Temp Pulse Resp BP Pulse Ox 12/28/18 11:29 98.9 F 88 20 139/86 98 Departure - Departure Time of Disposition: 12:22 Disposition: HOME SELF-CARE Discharge Problem: Pain in toe Instructions: Foot Sprain (ED) Condition: Good Pt referred to PMD for follow-up: Yes IPMP verified?: No Allergies/Adverse Reactions: Allergies No Known Allergies Allergy (Verified 12/28/18 11:32) Home Medications: Ambulatory Orders Amoxicillin [Amoxil] 500 mg PO TID 12/28/18
== END 2018-12-28 12:35 | disposition home or self-care (01) ==
LOC: ED 11:28
DX: M79.674 Pain in right toe(s) (principal); S99.921A Unspecified injury of right foot, initial encounter; W22.8XXA Striking against or struck by other objects, initial encounter
CPT/HCPCS: 99283